=== PATIENT | female | born 1940 | race Caucasian/White ===

== ENCOUNTER 2017-03-11 10:48 | Emergency (ER) | payer MEDICARE, BC ==
[2017-03-11 11:27] LABS: Base Excess 2.8 mEq/L (-2 - +2); Hemoglobin (Hb) 13.5 g/dL (11.7-16.1); pH (venous) 7.36 (7.35-7.45)
[2017-03-11 11:35] LABS: #Basophils 0.1 thou/uL (0.0-0.2); #Eosinphils 0.2 thou/uL (0.0-0.7); #Lymphocytes 1.5 thou/uL (1.20-3.40); #Monocytes 0.8 thou/uL (0.11-0.59); #Neutrophils 10.4 thou/uL (1.40-6.50); %Basophils 1.1 % (0.0-1.0); %Eosinophils 1.4 % (0.0-10.0); %Lymphocytes 11.7 % (21.0-51.0); %Neutrophils 79.8 % (42.0-75.0); Hemoglobin 12.4 g/dL (12.0-16.0); Mean Corpuscular HGB CONC 34.5 g/dL (32.0-36.0); Mean Corpuscular Hemoglobin 34.5 pg (27.0-31.0); Mean Platelet Volume 6.4 fL (7.4-10.4); Platelet Count 229 thou/uL (130-400); White Blood Cell (WBC) Count 13.1 thou/uL (4.8-10.8)
[2017-03-11] MEDS ORDERED: methylPREDNISolone Sod Succ/PF 125 MG/2 ML VIAL ONE (11:35)
[2017-03-11 11:42] LABS: ALT (SGPT) 28 U/L (8-55); AST (SGOT) 38 U/L (5-34); Albumin 3.9 g/dL (3.4-4.8); Alkaline Phosphatase 94 U/L (40-150); Anion Gap 18 mmol/L (10-20); BUN (Urea Nitrogen) 23 mg/dL (9.8-20.1); Bilirubin, Total 0.6 mg/dL (0.2-1.2); Calc. Creatinine Clearance 0 mL/min (70-130); Calcium 9.8 mg/dL (7.8-10.44); Carbon Dioxide 24 mmol/L (23-31); Chloride 103 mmol/L (98-107); Estimated GFR-MDRD 63; Globulin 3.7 g/dL (2.4-3.5); Glucose 85 mg/dL (83-110); Potassium 4.3 mmol/L (3.5-5.1); Protein, Total 7.6 g/dL (6.0-8.3); Sodium 141 mmol/L (136-145)
[2017-03-11 11:44] LABS: CKMB 2.7 ng/mL (0-6.6); Troponin I 0.014 ng/mL (< 0.028)
[2017-03-11 11:57] LABS: PLT Morphology Comment Appears Adequate; RBC Morphology Normal
--- NOTE | 2017-03-11 12:58 | RAD ---
CHEST TWO VIEWS: Date: 03-11-17 Comparison: None. FINDINGS: There is likely a small amount of streaking in the left lower lobe posteriorly. I cannot exclude an e angela developing infiltrate here. The right costophrenic angle was slightly blunted but I cannot tell if this is new or old. There are some calcified granulomas on the right side in particular. The heart size is normal. Bipolar cardiac pacer is in place. There is no congestive change. The trachea is mid line. IMPRESSION: Possible mild left basilar streaking. I cannot exclude an early infection here. Code T POS: [facility]
== END 2017-03-11 12:00 | disposition home or self-care (01) ==
LOC: BURERS 10:48
DX: J44.1 Chronic obstructive pulmonary disease with (acute) exacerbation (principal); J06.9 Acute upper respiratory infection, unspecified; E03.9 Hypothyroidism, unspecified; I10 Essential (primary) hypertension; Z79.899 Other long term (current) drug therapy; Z79.82 Long term (current) use of aspirin
CPT/HCPCS: 71046; 80053; 82553; 82805; 83880; 84484; 85025; 93005; 96374; J2930; J7620